=== PATIENT | male | born 1995 | race Two or more races ===

== ENCOUNTER 2024-09-28 11:14 | Emergency (ER) | payer BC ==
[~2024-09-28] VITALS: Ht 175.3 cm; Wt 86.2 kg
[2024-09-28] MEDS ORDERED: DEXAMETHASONE SODIUM PHOSPHATE 4 MG/ML VIAL IM STA (14:10)
[2024-09-28] MEDS ORDERED: CEFTRIAXONE SODIUM 1,000 MG VIAL IM STA (14:10)
[2024-09-28] MEDS ORDERED: ACETAMINOPHEN500 M2 PO (14:15)
[2024-09-28] MEDS ORDERED: NASAL MIST126 ML NASAL (14:15)
[2024-09-28] MEDS ORDERED: AMOX1TAB5 PO (14:15)
[2024-09-28] MEDS ORDERED: CEFTRIAXONE SODIUM 1,000 MG VIAL ONE (14:16)
[2024-09-28] MEDS ORDERED: DEXAMETHASONE SODIUM PHOSPHATE 4 MG/ML VIAL ONE (14:16)
== END 2024-09-28 15:35 | disposition home or self-care (01) ==
LOC: ER 11:17
DX: J03.90 Acute tonsillitis, unspecified (principal)